=== PATIENT | male | born 1985 | race Caucasian/White ===

== ENCOUNTER 2017-07-25 16:34 | Emergency (ER) | payer SELFPAY ==
[~2017-07-25 16:34] MED LIST: IBUP800T23 PO
[2017-07-25 16:38] VITALS: BP 127/79; PULSE 104; RESP 18; TEMP 98.6; O2SAT 98
[2017-07-25] MEDS ORDERED: BACT800T5 PO (17:14)
--- NOTE | 2017-07-25 17:16 | PD ---
HPI Chief Complaint: Skin Problem Time Seen by Provider: 17:14 Travel History International Travel<30 days: No Contact w/Intl Traveler<30days: No Traveled to known affect area: No History of Present Illness HPI 32-year-old male presents to the emergency department complaining of an irritation to the lower abdominal area for 5 days. Patient states that the area became increasingly tender and painful in today he presents because he is concerned. States the pain is mild to moderate, aching, increases with palpation, and does not radiate. Patient does not remember being bit and does not have a history of abscesses or other chronic skin infections. Denies trauma. Patient denies fever or chills. Denies chronic medical issues or medication use. PFSH Past Medical History Diabetes: No Hepatitis: Yes Social History Alcohol Use: Yes Tobacco Use: Yes Substance Use: Yes Allergies-Medications (Allergen,Severity, Reaction): Coded Allergies: No Known Allergies (Unverified Adverse Reaction, Unknown, 07/25/17) Reported Meds & Prescriptions Reported Meds & Active Scripts Active Bactrim DS (Sulfamethoxazole-Trimethoprim) 800-160 Mg Tab 1 Tab PO BID Review of Systems Except as stated in HPI: all other systems reviewed are Neg Physical Exam Narrative GENERAL: Well-nourished, well-developed patient. SKIN: Focused skin assessment warm/dry. Mid lower abdominal, just below the belt line- round 1 cm mass with surrounding erythema. Area of fluctuance and tender. No lymphangitic Spread. No evidence of deep tissue infection. HEAD: Normocephalic. EYES: No scleral icterus. No injection or drainage. NECK: Supple, trachea midline. No JVD or lymphadenopathy. GASTROINTESTINAL: Abdomen soft, non-tender, nondistended. MUSCULOSKELETAL: No cyanosis, or edema. BACK: Nontender without obvious deformity. No CVA tenderness. Data Data Last Documented VS Vital Signs Date Time Temp Pulse Resp B/P (MAP) Pulse Ox O2 Delivery O2 Flow Rate FiO2 07/25/17 16:38 98.6 104 18 127/79 (95) 98 Room Air Orders Orders Ed Discharge Order (07/25/17 17:22) MDM Medical Decision Making Medical Screen Exam Complete: Yes Emergency Medical Condition: Yes Differential Diagnosis Abscess, cellulitis, erysipelas Narrative Course 32-year-old male presents to the emergency department complaining of an irritation to the lower abdominal area for 5 days. Patient states that the area became increasingly tender and painful and today he presents because he is concerned. States the pain is mild to moderate, aching, increases with palpation, and does not radiate. Patient does not remember being bit and does not have a history of abscesses or other chronic skin infections. Denies trauma. Patient denies fever or chills. Denies chronic medical issues or medication use. Vital signs stable. Physical exam demonstrates an anxious 32-year-old male. Abscess on the lower abdominal wall region without evidence of lymphangitic Spread. No evidence of deep tissue infection. I suspect folliculitis resulting in an abscess. Incision and drainage performed today. Patient will be discharged home with antibiotics. Advised patient to take antibiotics as prescribed. Wound care as discussed. Advised follow-up with primary care physician within 2-3 days. Return to the emergency department for worsening or persistent symptoms. Procedures Procedure Narrative INCISION AND DRAINAGE OF ABSCESS: The area was prepped and was sterilely draped. A subcutaneous wheal of 1 % Xylocaine without epinephrine with a total number 1 mL was used to anesthetize the area properly. A number 11 scalpel was used to make a 5mm incision across the area of the abscess. The abscess was drained, complex loculations were broken down, and irrigated with normal saline. Quarter inch iodoform packing was placed in the wound. Sterile dressing applied. Patient advised to have packing removed in 24 hours. Diagnosis Primary Impression: Abscess Referrals: [facility] Additional Instructions: Follow up with your primary care physician within 2-3 days. Keep area clean and dry. Keep your dressing on for at least 24 hours. You may bathe as normal after 24 hours. Keep area clean and dry. You may use [id number] triple antibiotic ointments. Take all medications as prescribed If he developed increased redness, swelling, or pain return to the emergency department. Med/Other Pt SpecificInfo: Wound Care Scripts Sulfamethoxazole-Trimethoprim (Bactrim DS) 800-160 Mg Tab 1 TAB PO BID for Infection, #20 TAB 0 Refills Prov: Terese Robert 07/25/17 Disposition: 01 DISCHARGE HOME Condition: Stable Amparo Wilkes Jul 25, 2017 17:16
== END 2017-07-25 17:32 | disposition home or self-care (01) ==
LOC: NEPK 16:34
DX: L02.211 Cutaneous abscess of abdominal wall (principal); Z72.0 Tobacco use; Z86.19 Personal history of other infectious and parasitic diseases
CPT/HCPCS: 10061

== ENCOUNTER 2017-09-16 08:54 | Emergency (ER) | payer SELFPAY ==
[~2017-09-16] VITALS: Ht 172.7 cm; Wt 70.0 kg
[~2017-09-16 08:54] MED LIST changes: +BACT800T5 PO; -IBUP800T23 PO
[2017-09-16 08:57] VITALS: BP 116/80; PULSE 98; RESP 14; TEMP 97.8; O2SAT 99
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
[2017-09-16] MEDS ORDERED: TYLETAB34 PO (10:05)
== END 2017-09-16 10:26 | disposition home or self-care (01) ==
LOC: NEPK 08:54
DX: S62.611A Displaced fracture of proximal phalanx of left index finger, initial encounter for closed fracture (principal); V19.9XXA Pedal cyclist (driver) (passenger) injured in unspecified traffic accident, initial encounter; Y93.55 Activity, bike riding; Z72.0 Tobacco use
CPT/HCPCS: 73110; 73130; 99283

== ENCOUNTER 2017-11-28 14:19 | Emergency (ER) | payer SELFPAY ==
[~2017-11-28] VITALS: Ht 180.3 cm; Wt 71.0 kg
[~2017-11-28 14:19] MED LIST changes: -BACT800T5 PO; +TYLETAB34 PO
[2017-11-28 14:42] VITALS: BP 131/79; PULSE 80; RESP 19; TEMP 98.3; O2SAT 99
[2017-11-28] MEDS ORDERED: IBUP1TAB7 PO (17:15)
[2017-11-28] MEDS ORDERED: PERI0.126 SWISH-SPIT (17:15)
[2017-11-28] MEDS ORDERED: AMOX500C PO (17:15)
[2017-11-28] MEDS ORDERED: IBUPROFEN 800 MG TAB PO ONE (17:15)
[2017-11-28] MEDS ORDERED: AMOXICILLIN (TRIHYDRATE) 500 MG CAP PO ONE (17:15)
--- NOTE | 2017-11-28 17:16 | PD ---
HPI Chief Complaint: Oral / Dental Pain or Problem Time Seen by Provider: 16:58 Travel History International Travel<30 days: No Contact w/Intl Traveler<30days: No Traveled to known affect area: No History of Present Illness HPI 32-year-old male presents to emergency room with complaint of left lower dental pain 2 days. Denies fever, vomiting. Denies facial edema. Denies ear pain, sore throat. Denies difficulty swallowing, unusual drooling, lump in throat. Rates pain 10/10. Pain is constant. No known aggravating or relieving factors. Has tried ice, heat, gargling warm water, Tylenol. No primary care provider. Denies significant past medical history. No known allergies. No dentist. Has no other medical complaints. No other modifying factors or associated signs and symptoms. PFSH Past Medical History Diabetes: No Hepatitis: Yes Social History Alcohol Use: Yes Tobacco Use: Yes Substance Use: Yes Allergies-Medications (Allergen,Severity, Reaction): Coded Allergies: No Known Allergies (Unverified Adverse Reaction, Unknown, 11/28/17) Reported Meds & Prescriptions Reported Meds & Active Scripts Active Peridex Liq (Chlorhexidine Gluconate (Mouth) Liq) 0.12% Soln 15 Ml SWISH-SPIT BID 10 Days Ibuprofen 800 Mg Tab 800 Mg PO Q6HR PRN Amoxicillin 500 Mg Cap 500 Mg PO BID 10 Days Tylenol-Codeine #3 (Acetaminophen-Codeine) 300-30 mg Tab 1 Tab PO Q6H PRN Review of Systems Except as stated in HPI: all other systems reviewed are Neg Physical Exam Narrative GENERAL: Well-nourished, well-developed male patient, in no acute distress; afebrile, nontoxic-appearing SKIN: Warm and dry. HEAD: Atraumatic. Normocephalic. No facial edema, erythema, tenderness on palpation. No lymphadenopathy. EYES: Pupils equal and round. No scleral icterus. No injection or drainage. ENT: Mucosa pink and moist. No erythema or exudates. No uvular edema. No uvular , palatal, or tonsillar deviation. Airway patent. EARS: Bilateral pinnae and external canals appear within normal limits. Bilateral tympanic membranes without erythema, dullness or perforation. MOUTH: Mucous membranes moist, no lesions, tongue and gums appear normal. Left lower wisdom tooth with tenderness on palpation. Surrounding gingiva is without erythema, edema, drainage. No obvious abscess noted. NECK: Trachea midline. No lymphadenopathy. CARDIOVASCULAR: Regular rate. RESPIRATORY: No accessory muscle use. GASTROINTESTINAL: Flat. MUSCULOSKELETAL: No obvious deformities. No clubbing. No cyanosis. No edema. NEUROLOGICAL: Awake and alert. Oriented 3. No obvious cranial nerve deficits. Motor grossly within normal limits. Normal speech. PSYCHIATRIC: Appropriate mood and affect; insight and judgment normal. Data Data Last Documented VS Vital Signs Date Time Temp Pulse Resp B/P (MAP) Pulse Ox O2 Delivery O2 Flow Rate FiO2 11/28/17 14:42 98.3 80 19 131/79 (96) 99 Orders Orders Ibuprofen (Motrin) (11/28/17 17:15) Amoxicillin (Trimox) (11/28/17 17:15) Ed Discharge Order (11/28/17 17:26) [facility] Medical Decision Making Medical Screen Exam Complete: Yes Emergency Medical Condition: Yes Medical Record Reviewed: Yes Differential Diagnosis dentalgia, dental abscess, infected dental lee Narrative Course 32-year-old male with pain to his left lower wisdom tooth. No facial edema, erythema. Patient is afebrile and nontoxic-appearing. Denies fever, vomiting. No obvious abscess noted. Amoxicillin, ibuprofen, para Meds prescribed for home. Patient provided emergency dental information sheet for follow-up. Instructed patient to follow-up with dentist. Instructed patient to follow up with primary care provider. Patient verbalizes understanding and agreement with treatment plan. Patient is medically cleared and stable for discharge. Discussed reasons to return to the emergency department. Patient agrees with treatment plan. The patients vital signs are stable and the patient is stable for outpatient follow-up and treatment. Patient discharged home, stable and in no acute distress. Diagnosis Primary Impression: Tooth pain Referrals: Dentist Primary Care Physician Patient Instructions: Dental Abscess (ED), Dental Caries (ED), General Instructions, Toothache (ED) Departure Forms: Tests/Procedures, Work Release Enter return to work date: Nov 29, 2017 Additional Instructions: Complete full course of antibiotics Ibuprofen or Tylenol as directed and as needed to reduce pain and inflammation Use Magic mouthwash rinse as directed and as needed to decrease pain Use Peridex as directed for oral hygiene Warm or cool compresses to the affected area Follow-up with dentist Follow-up with primary care provider Return to emergency department immediately with worsening of symptoms Med/Other Pt SpecificInfo: Prescription(s) given Scripts Chlorhexidine Gluconate (Mouth) Liq (Peridex Liq) 0.12% Soln 15 ML SWISH-SPIT BID for 10 Days, #300 ML 0 Refills Prov: Cindy Ellsworth 11/28/17 Ibuprofen (Ibuprofen) 800 Mg Tab 800 MG PO Q6HR Y for PAIN, #30 TAB 0 Refills Prov: Cindy Ellsworth 11/28/17 Amoxicillin (Amoxicillin) 500 Mg Cap 500 MG PO BID for Infection for 10 Days, #20 CAP 0 Refills Prov: Cindy Ellsworth 11/28/17 Disposition: 01 DISCHARGE HOME Condition: Stable Cindy Ellsworth Nov 28, 2017 17:16
== END 2017-11-28 17:42 | disposition home or self-care (01) ==
LOC: NEPK 14:19
DX: K08.89 Other specified disorders of teeth and supporting structures (principal); K75.9 Inflammatory liver disease, unspecified; F19.90 Other psychoactive substance use, unspecified, uncomplicated; Z72.0 Tobacco use
CPT/HCPCS: 99283